=== PATIENT | male | born 1995 | race Two or more races ===

== ENCOUNTER 2017-07-04 21:22 | Emergency (ER) | payer MEDICAID ==
--- NOTE | 2017-07-04 21:51 | EDPHY ---
H & P Stated Complaint: COUGH/BODY ACHES HPI/ROS: HPI CHIEF COMPLAINT: Cough, sore throat, fever, chills, flu-like illness HISTORY OF PRESENT ILLNESS: Patient is a 22-year-old male who presents emergency room with flu-like illness. Patient states for the past 24-48 hours he has been sick. He has been feeling ill with chills. He states sore throat. Additionally reports dry cough nonproductive. Shortness of breath or chest pain. Denies vomiting or diarrhea. States that he came to visit his sister from [place] he however he lives in [place]. [place] ill tonight came to the emergency room for evaluation. He is Farsi speaking only. Director Of Bands was used for history review of systems and physical exam. Past Medical History: Denies medical history Past Surgical History: Denies surgical history Social History: Denies drugs alcohol tobacco. Family History: Noncontributory ROS REVIEW OF SYSTEMS: A comprehensive 10 point review of systems is otherwise negative aside from elements mentioned in the history of present illness. Exam Constitutional appears well nontoxic no distress, triage nursing summary reviewed, vital signs reviewed, awake/alert. Eyes normal conjunctivae and sclera, EOMI, PERRLA. HENT normal inspection, atraumatic, moist mucus membranes, no epistaxis, neck supple/ no meningismus, no raccoon eyes. Respiratory dry cough, clear to auscultation bilaterally, normal breath sounds , no respiratory distress, no wheezing. Cardiovascular rate normal, regular rhythm, no murmur, no edema, distal pulses normal. Gastrointestinal soft, non-tender, no rebound, no guarding, normal bowel sounds, no distension, no pulsatile mass. Genitourinary no CVA tenderness. Musculoskeletal no midline vertebral tenderness, full range of motion, no calf swelling, no tenderness of extremities, no meningismus, good pulses, neurovascularly intact. Skin pink, warm, & dry, no rash, skin atraumatic. Neurologic awake, alert and oriented x 3, AAOx3, moves all 4 extremities equally, motor intact, sensory intact, CN II-XII intact, normal cerebellar, normal vision, normal speech. Psychiatric normal mood/affect. Heme/Lymph/Immune no lymphadenopathy. Differential Diagnosis: Includes but is not limited to in a particular order, acute influenza, viral syndrome, upper respiratory tract infection, viral pneumonia, bacterial pneumonia, acute febrile Medical Decision Making: Plan for this patient chest x-ray rule out pneumonia, check rapid strep, check influenza, ibuprofen 800 mg. Re-evaluate. Re-evaluation: 2300: Patient is Invanz a positive. Will give a dose of Tamiflu in emergency room. I do feel this patient go home. The patient is not hypoxic has no respiratory distress and appears well nontoxic. He has had 48 hr of symptoms will start Tamiflu 75 mg p.o. Twice daily. I recommend he stay well-hydrated drink lots of fluids Additionally recommend alternating Tylenol Motrin for fever control. I discussed this at length with him and his sister at bedside. Director Of Bands was used. Return precautions discussed. He understands return emergency room if develops worsening symptoms fever, vomiting, shortness of breath Source: Patient - Personal History Current Tetanus Diphtheria and Acellular Pertussis (TDAP): Unsure - Medical/Surgical History Hx Asthma: No Hx Chronic Respiratory Disease: No Hx Diabetes: No Hx Cardiac Disease: No Hx Renal Disease: No Hx Cirrhosis: No Hx Alcoholism: No Hx HIV/AIDS: No Hx Splenectomy or Spleen Trauma: No Other PMH: DENIES - Social History Smoking Status: Never smoked Constitutional: Initial Vital Signs Temperature (C) 37.9 C 07/04/17 22:01 Heart Rate 122 H 07/04/17 22:01 Respiratory Rate 20 07/04/17 22:01 Blood Pressure 136/106 H 07/04/17 22:01 O2 Sat (%) 93 07/04/17 22:01 O2 Delivery Mode Room Air Allergies/Adverse Reactions: No Known Allergies Allergy (Unverified 07/04/17 21:33) Home Medications: Medication Instructions Recorded Oseltamivir Phosphate [Tamiflu 75 75 mg PO BID #10 cap 07/04/17 mg (*)] Medical Decision Making - Diagnostics Imaging Results: Imaging Impressions Chest X-Ray 07/04/17 21:56 Impression: Airways disease. - Data Points Laboratory Results: 07/04/17 07/04/17 21:50 21:50 Nasal Influenza A PCR FLU A DETECTED H (NEGATIVE) Nasal Influenza B PCR NEGATIVE FOR FLU B (NEGATIVE) RSV (PCR) NEGATIVE FOR RSV (NEGATIVE) Group A Strep Screen Pending Cancelled Medications Given: Discontinued Medications Acetaminophen (Tylenol) 1,000 mg PO EDNOW ONE Stop: 07/04/17 22:00 Last Admin: 07/04/17 22:19 Dose: 1,000 mg Ibuprofen (Motrin) 800 mg PO EDNOW ONE Stop: 07/04/17 21:57 Last Admin: 07/04/17 22:19 Dose: 800 mg Departure - Departure Disposition: [facility] IP Clinical Impression: Influenza Condition: Good Instructions: Influenza (ED) Additional Instructions: 1. Stay well-hydrated drink lots of fluids. 2. Alternate Tylenol Motrin for fever and pain control. 3. Return to the emergency room if you have worsening symptoms includes worsening shortness of breath, high fever, vomiting. Referrals: NONE *PRIMARY CARE P,. [Primary Care Provider] - As per Instructions Prescriptions: Oseltamivir Phosphate [Tamiflu 75 mg (*)] 75 mg PO BID #10 cap
[2017-07-04] MEDS ORDERED: IBUPROFEN 800 MG TAB PO ONE (21:56)
[2017-07-04] MEDS ORDERED: ACETAMINOPHEN 500 MG TAB PO ONE (21:59)
[2017-07-04 22:02] VITALS: RESP 20
[2017-07-04] MEDS ORDERED: OSELTAMIVIR PHOSPHATE 75 MG CAP PO ONE (23:00)
[2017-07-05 00:21] VITALS: BP 132/66; PULSE 100; TEMP 98.4; O2SAT 96
== END 2017-07-05 00:23 ==
DX: J10.1 Influenza due to other identified influenza virus with other respiratory manifestations (principal)